=== PATIENT | female | born 2000 | race Caucasian/White ===

== ENCOUNTER 2020-01-12 23:25 | Emergency (ER) | payer MEDICAID ==
[~2020-01-12] VITALS: Ht 149.9 cm; Wt 64.4 kg
[2020-01-12 23:36] VITALS: Ht 149.9 cm; Wt 64.4 kg
[2020-01-13 00:50] LABS: BASOPHIL % 0.8 % (0-2); PLATELET COUNT 314 x10^3mcL (130-400)
[2020-01-13 00:54] LABS: RED CELL DISTRIBUTION WIDTH 15.3 % (11.5-14.5)
[2020-01-13 02:42] VITALS: BP 114/67
== END 2020-01-13 02:43 | disposition home or self-care (01) ==
LOC: ED 23:25
PROVIDERS: Student in an Organized Health Care Education/Training Program
DX: O20.0 Threatened abortion (principal); O99.011 Anemia complicating pregnancy, first trimester; Z3A.10 10 weeks gestation of pregnancy; Z88.6 Allergy status to analgesic agent
CPT/HCPCS: 87491; 87591; J7030; Q0092